=== PATIENT | female | born 1950 | race Caucasian/White ===

== ENCOUNTER 2024-09-18 14:42 | Emergency (ER) | payer OTHER, SELFPAY ==
--- NOTE | ~2024-09-18 | XR_ITS ---
XR ankle LT min 3V Ordering provider: Lay Bee NP History: . Rolled Lt ankle this A.M.,lateral pain/swelling . Comparison: None. FINDINGS: BONES: Undisplaced Fracture of the tip of the left lateral malleolus. ^).. JOINT SPACES: The ankle mortise is normal. SOFT TISSUES: Soft tissue swelling over the lateral malleolus. IMPRESSION: Undisplaced fracture of the distal end of the left fibula. Reviewed, dictated and finalized at location A. NING PROGRAM DEVELOPER
[2024-09-18 15:32] VITALS: BP 146/73; PULSE 68; RESP 16; TEMP 36.4; O2SAT 100
--- NOTE | 2024-09-18 17:22 | ED.LOWEXIN ---
HPI - Extremity Injury (Lower) General Chief Complaint: Extremity Injury, Lower Stated Complaint: Left Ankle Pain Source: patient, RN notes reviewed and old records reviewed Mode of arrival: ambulatory Limitations: no limitations Related Data Home Medications ?Medication ?Instructions ?Recorded ?Confirmed ?Last Taken ?Type No Home Medications 09/18/24 09/18/24 Unknown History Allergies Allergy/AdvReac Type Severity Reaction Status Date / Time No Known Allergies Allergy Verified 09/18/24 15:38 Course Vital Signs Vital signs: Vital Signs Temperature 36.4 C 09/18/24 15:32 Pulse Rate 68 09/18/24 15:32 Respiratory Rate 16 09/18/24 15:32 Blood Pressure 146/73 H 09/18/24 15:32 Pulse Oximetry 100 09/18/24 15:32 Temperature 36.4 C 09/18/24 15:32 Pulse Rate 68 09/18/24 15:32 Respiratory Rate 16 09/18/24 15:32 Blood Pressure 146/73 H 09/18/24 15:32 Pulse Oximetry 100 09/18/24 15:32 Discharge Plan Discharge Patient Disposition: Home, Self-Care Condition: Stable Instructions: Antibiotic Form Patient Language: Hebrew Prescriptions: No Action No Home Medications Follow-up/Referrals: PHYSICIAN,SOFT SUGAR CUTTER [Primary Care Provider] - Quality Yong Coma Scale Eyes: Open Verbal: Oriented and Alert Motor: Follows Commands [place] Coma Total Score: 15
--- NOTE | 2024-09-18 18:25 | ED.LOWEXIN ---
HPI - Extremity Injury (Lower) General Chief Complaint: Extremity Injury, Lower Stated Complaint: Left Ankle Pain Time Seen by Provider: 09/18/24 17:22 Source: patient, RN notes reviewed and old records reviewed Mode of arrival: ambulatory Limitations: no limitations History of Present Illness HPI Narrative: 74 year old female accompanied by family member presents to express care with complaints of pain to the lateral aspect of her left ankle after sustaining a fall this morning when she rolled her ankle and fell when she was out shopping. Patient has noted swelling to the lateral aspect of her right ankle, foot is warm and pink and pedal pulse is present of adequate quality. Patient reports that she has taken some Ibuprofen.Patient reports that pain is sharp with any movement of her foot and with weightbearing. Patient is visiting from out of town. MD complaint: ankle injury (left ) Onset (ago): hour(s) (occurred this morning) Injury: Left: ankle (lateral aspect) Place: street/outdoors Severity scale (1-10): 5 Exacerbating factors: weight bearing and movement Treatments prior to arrival: NSAIDS Related Data Home Medications ?Medication ?Instructions ?Recorded ?Confirmed ?Last Taken ?Type No Home Medications 09/18/24 09/18/24 Unknown History Allergies Allergy/AdvReac Type Severity Reaction Status Date / Time No Known Allergies Allergy Verified 09/18/24 15:38 Review of Systems Review of Systems: CONSTITUTIONAL: Denies fever, chills, or sweats. EYES: Denies visual changes, redness, or discharge. ENT: Denies rhinorrhea, congestion, sore throat, or otalgia. CARDIOVASCULAR: Denies chest pain, palpitations, or edema. RESPIRATORY: Denies cough or dyspnea. GASTROINTESTINAL: Denies abdominal pain, nausea, vomiting, or diarrhea. GENITOURINARY: Denies dysuria or hematuria. SKIN: Denies rash or itching. MUSCULOSKELETAL: Denies back pain,positive for pain to her lateral left ankle with swelling, or myalgia. NEUROLOGIC: Denies headache, numbness, or weakness. PSYCHIATRIC: Denies anxiety or depression. All systems reviewed & are unremarkable except as noted in HPI and below [facility] Social History Social History (Updated 09/24/24 @ 09:24 by Lay Bee NP) Smoking status: Never smoker Alcohol intake: unknown Substance use: unknown Living arrangements: with family Gender identity (if verbalized by the patient): Female Comments At time of signature, agree with nursing past medical, surgical, social and family history. There is no relevant family history pertinent to the presenting complaint Exam Narrative: GENERAL: Well-appearing, well-nourished, and in no acute distress. HEAD: Normocephalic, atraumatic. EYES: PERRLA and EOMI. ENT: Nares clear, no rhinorrhea or epistaxis. Mucous membranes moist. NECK: Supple.no lymphadenopathy CHEST: Clear to auscultation. No respiratory distress.SAO2 100% on room air HEART: Regular rate and rhythm. No murmur heard. Normal peripheral pulses. ABDOMEN: Soft, nontender, nondistended, normal active bowel sounds. EXTREMITIES: Normal range of motion. No edema.Exception noted to left lateral ankle with noted swelling present, foot wrm to touch and pink with pedal pulse present, denies any pain to heel area or up the back of her foot, increased pain with any attempted movement of her ankle, denies any tingling or numbness to her foot, able to move toes without difficulty. SKIN: Warm, dry, no rash. NEURO: No focal deficits. Alert and oriented x3. Course Course Emergency Course: Patient is aware of diagnosis, understands and agrees to treatment plan.? Anticipatory guidance given.? Patient agrees to follow-up as directed and is aware of reasons to seek care at the emergency department. Portions of this record may have been created with voice recognition software Level of Care: Express Care Visit Vital Signs Vital signs: Vital Signs Temperature 36.4 C 09/18/24 15:32 Pulse Rate 68 09/18/24 15:32 Respiratory Rate 16 09/18/24 15:32 Blood Pressure 146/73 H 09/18/24 15:32 Pulse Oximetry 100 09/18/24 15:32 Temperature 36.4 C 09/18/24 15:32 Pulse Rate 68 09/18/24 15:32 Respiratory Rate 16 09/18/24 15:32 Blood Pressure 146/73 H 09/18/24 15:32 Pulse Oximetry 100 09/18/24 15:32 Reviewed Procedures Orthopedic Splinting/Casting ankle: Splinting/Casting Date: 09/18/24 Splinting/Casting Time: 17:56 Side: left Lower Extremity Injury Location: ankle Lower Extremity Immobilizer: posterior splint Splint: customized in ED OCL: short leg Pre-Procedure Neuro Vascular Exam: normal Post-Procedure Neuro Vascular Exam: normal Other Orthopedic Equipment: crutches Additional Comments: Patient tolerated splinting without increase in discomfort. Patient and friend talking and laughing in room. Patient reviewed on crutch training and patient reports she has used crutches in the past and was able to demonstrate crutch walking with splint in place. with NWB of left foot. MDM - Extremity Injury (Lower) Differential Diagnosis Differential diagnosis: Likely ankle sprain and strain, ankle fracture and other (pain to left lateral ankle, injury left ankle) Medical Records Attestation: I reviewed the patient's medical records. Imaging Data Attestation: I personally reviewed and interpreted this imaging study as follows: My impression: undisplaced fracture of distal end of left fibula with soft tissue swelling over lateral malleolus Radiologist's impression: [facility] Bipin Ortiz [facility] [facility] [place] [address] XRay Report Signed Patient: Eduin Villalpando : 1950 MR#: [id number] Age: 74 Acct:[id number] Loc: [id number] ADM Date: 09/18/24Attending Dr: Ordering Physician: Lay Bee APRN Date of Service: 09/18/24 Procedure(s): XR ankle LT min 3V Accession Number(s): [id number] cc: MARKETING OPERATIONS INTERN PHYSICIAN; Lay Bee APRN~ XR ankle LT min 3V Ordering provider: Lay Bee NP History: . Rolled Lt ankle this A.M.,lateral pain/swelling . Comparison: None. FINDINGS: BONES: Undisplaced Fracture of the tip of the left lateral malleolus. ^).. JOINT SPACES: The ankle mortise is normal. SOFT TISSUES: Soft tissue swelling over the lateral malleolus. IMPRESSION: Undisplaced fracture of the distal end of the left fibula. Reviewed, dictated and finalized at location A. RVISOR KNITTING Dictated By: Lukasz Saavedra MD 09/18/24 1622 Signed By: <Electronically signed by Lukasz Saavedra MD in OV> Critical Care Time Critical Care Time Critical Care Time: No Discharge Plan Discharge Clinical Impression: Fracture of distal end of left fibula Qualifiers: Encounter type: initial encounter Fracture type: closed Fracture morphology: unspecified fracture morphology Qualified Code(s): S82.832A - Other fracture of upper and lower end of left fibula, initial encounter for closed fracture Patient Disposition: Home, Self-Care Condition: Stable Instructions: Antibiotic Form, Ankle Fracture (DC) Additional Instructions: Elastic wrap or orthopedic splint as directed for comfort for the next 5-7 days Crutches as directed if needed Tylenol for lesser pain Ibuprofen regularly for the next 2-3 days for the inflammation Use the medication as provided for severe pain--caution each tablet contains 325 mg of Tylenol--the maximum dose of Tylenol is 4000 mg in 24 hours. This medication may cause constipation consider starting a laxative at this time refused offer of any stronger pain medication Follow-up with orthopedic surgeon as per your preference in your hometown area Follow-up with PCP if further problems or concerns Ice to the area 20-30 minutes 4-6 times a day Elevate above heart If your symptoms persist, change or worsen significantly before you can contact your personal physician then please, without delay, go to the emergency department for further evaluation. Follow-up with PCP in 7-10 days or sooner if needed Follow up with PCP soon in regards to your blood pressure which is elevated above threshold for referral. Blood pressure above 120/80 may indicate pre-hypertension. 146/73 x-ray disk tot patient and copy of x-ray report Patient Language: [place] Prescriptions: No Action No Home Medications Follow-up/Referrals: PHYSICIAN,MARKETING OPERATIONS INTERN [Primary Care Provider] - Time of Disposition: 18:30 Quality Yong Coma Scale Eyes: Open Verbal: Oriented and Alert Motor: Follows Commands [place] Coma Total Score: 15
== END 2024-09-18 18:35 | disposition home or self-care (01) ==
PROVIDERS: Emergency Provider Registered Nurse
DX: S82.832A Other fracture of upper and lower end of left fibula, initial encounter for closed fracture (principal); W19.XXXA Unspecified fall, initial encounter
CPT/HCPCS: 29515; 73610; 99213; G0463